=== PATIENT | male | born 1995 ===

== ENCOUNTER → 2018-11-09 18:32 | Outpatient (REF) | payer SELFPAY ==
[2018-11-09 19:12] LABS: Add Manual Diff / Slide Review NO; Basophils Absolute Auto 100 /uL (0-100); Basophils Percent Auto 0.9 % (0-2); Eosinophils Absolute Auto 100 /uL (0-450); Eosinophils Percent Auto 1.5 % (2-4); Hematocrit 48.8 % (41-53); Hemoglobin 16.2 g/dL (13.5-17.5); Lymphocytes Absolute Auto 2200 /uL (1100-4500); Lymphocytes Percent Auto 33.7 % (25-40); Mean Corpuscular HGB Conc 33.1 % (30-36); Mean Corpuscular Hemoglobin 29.1 PG (26-34); Mean Corpuscular Volume 87.9 fL (80-100); Monocytes Absolute Auto 300 /uL (0-900); Neutrophils Absolute Auto 3900 /uL (1500-7000); Neutrophils Percent Auto 58.9 % (50-75); Platelet Count 243 X10^3/uL (150-400); Red Blood Cell Count 5.55 X10^6/uL (4.5-5.9); Red Cell Distribution Width 13.2 % (11.6-14.8); White Blood Cell Count 6.6 X10^3/uL (4.5-11.0)
[2018-11-09 19:18] LABS: Alanine Aminotransferase 82 IU/L (21-72); Albumin 4.9 g/dL (3.5-5.0); Albumin Globulin Ratio 1.5 (1.0-2.8); Alkaline Phosphatase 77 U/L (38-126); Amylase 79 U/L (30-110); Aspartate Aminotransferase 39 IU/L (17-59); BUN Creatinine Ratio 22.9 (6-22); Bilirubin Total 0.6 mg/dL (0.2-1.3); Blood Urea Nitrogen 16 mg/dL (9-20); Calcium 9.8 mg/dL (8.4-10.2); Carbon Dioxide 28 mmol/L (22-32); Chloride 101 mmol/L (98-107); Cholesterol 202 mg/dL (140-199); Estimated Glomerular Filt Rate > 60.0 mL/min (>60); Globulin 3.2 g/dL (1.7-4.1); Glucose 78 mg/dL (70-100); HDL Cholesterol 32 mg/dL (40-60); HEMOLYSIS < 15 (0-50); LDL Cholesterol Calculated 120 mg/dL (<100); Potassium 4.3 mmol/L (3.4-5.1); Sodium 139 mmol/L (137-145); Total Protein 8.1 g/dL (6.3-8.2); Triglycerides 252 mg/dL (35-150)
[2018-11-09 19:23] LABS: C-Reactive Protein Quant < 0.5 mg/dL (<1.0)
[2018-11-09 19:30] LABS: Hemoglobin A1C% w Est Avg Glu 5.1 % (4.0-6.0)
[2018-11-09 19:34] LABS: Erythrocyte Sedimentation Rate 4 MM/HR (0-15)
[2018-11-09 19:46] LABS: Prostate Specific Antigen 0.802 ng/mL (0.10-4.00)
== END ==
LOC: LAB 18:32
PROVIDERS: Visit Provider Nurse Practitioner Acute Care
DX: R10.9 Unspecified abdominal pain (principal)
CPT/HCPCS: 80053; 80061; 82150; 83036; 84153; 85025; 85651; 86140